=== PATIENT | male | born 1950 | race Caucasian/White ===

== ENCOUNTER 2019-03-30 17:19 | Emergency (ER) | payer MEDICARE, OTHER ==
[~2019-03-30] VITALS: Ht 175 cm; Wt 66.5 kg
--- NOTE | 2019-03-30 17:30 | ED Fever ---
History of Present Illness General Chief Complaint: Trauma-Non Activation Stated Complaint: FELL Source: patient, EMS Exam Limitations: clinical condition (MILLICENT BLANK DO) History of Present Illness Date Seen by Provider: Mar 30, 2019 Time Seen by Provider: 17:20 Initial Comments The patient is a 69-year-old male presents via EMS for evaluation of fever, general malaise, cough, and jaundice. The patient is an extremely poor historian. He states he has not seen a physician in over 20 years. He smoked 4 packs of cigarettes daily until recently when he cut back to 1 pack a day. He states that he used to drink alcohol heavily but does not anymore and is not sure if he has ever been diagnosed with cirrhosis or liver failure. He has a temperature of 37.7F upon arrival. He is noted to be tachycardic. He denies any pain at this time. He is alert, somewhat anxious, but appears to be in no distress. Timing/Duration: other (unknown) Fever Quality: greater than 100.5 F Associated Symptoms: cough (MILLICENT BLANK DO) Allergies and Home Medications Allergies Coded Allergies: No Known Drug Allergies (Unverified , 03/30/19) Patient Home Medication List Home Medication List Reviewed: Yes (MILLICENT BLANK DO) Review of Systems Review of Systems Constitutional: fever EENTM: no symptoms reported Respiratory: cough Cardiovascular: no symptoms reported Gastrointestinal: No abdominal pain; nausea Genitourinary: no symptoms reported Musculoskeletal: no symptoms reported Skin: no symptoms reported Psychiatric/Neurological: No Symptoms Reported Hematologic/Lymphatic: No Symptoms Reported Immunological/Allergic: no symptoms reported (MILLICENT BLANK DO) All Other Systems Reviewed Negative Unless Noted: Yes (MILLICENT BLANK DO) Past Pqeknur-Meribe-Eixacp Hx Past Med/Social Hx: Reviewed Nursing Past Med/Soc Hx (MILLICENT BLANK DO) Physical Exam Vital Signs - First Documented 03/30/19 03/30/19 17:19 17:33 Temp 37.7 Pulse 119 Resp 18 B/P (MAP) 113/67 (82) Pulse Ox 94 O2 Delivery Nasal Cannula O2 Flow Rate 2.00 FiO2 94 (SEBASTIÁN JIANG MD) Capillary Refill : (MILLICENT BLANK DO) Height: '" Weight: lbs. oz. kg; BMI Method: General Appearance: WD/WN, no apparent distress Eyes: Bilateral Eye PERRL, Bilateral Eye EOMI, Bilateral Eye Scleral Icterus HEENT: PERRL/EOMI, pharynx normal Neck: non-tender, full range of motion, supple Respiratory: chest non-tender, lungs clear, normal breath sounds, no respiratory distress, no accessory muscle use Cardiovascular: no edema, no JVD, tachycardia Gastrointestinal: normal bowel sounds, non tender, soft Extremities: normal range of motion, non-tender, normal inspection, no pedal edema Neurologic/Psychiatric: alert, normal mood/affect, oriented x 3 Skin: warm/dry, jaundice (MILLICENT BLANK DO) Focused Exam Lactate Level 03/30/19 17:20: Lactic Acid Level 1.80 (SEBASTIÁN JIANG MD) Lactic Acid Level Laboratory Tests Test 03/30/19 17:20 Lactic Acid Level 1.80 MMOL/L (0.50-2.00) (SEBASTIÁN JIANG MD) Progress/Results/Core Measures Suspected Sepsis SIRS Temperature: Pulse: Respiratory Rate: Laboratory Tests 03/30/19 17:20: Blood Pressure / Mean: 03/30/19 17:20: Laboratory Tests 03/30/19 17:20: (MILLICENT BLANK DO) Results/Orders Lab Results Laboratory Tests Test 03/30/19 17:20 03/30/19 18:12 Range/Units White Blood Count 13.3 H 4.3-11.0 10^3/uL Red Blood Count 3.67 L 4.35-5.85 10^6/uL Hemoglobin 11.5 L 13.3-17.7 G/DL Hematocrit 35 L 40-54 % Mean Corpuscular Volume 96 80-99 FL Mean Corpuscular Hemoglobin 31 25-34 PG Mean Corpuscular Hemoglobin Concent 33 32-36 G/DL Red Cell Distribution Width 13.7 10.0-14.5 % Platelet Count 235 130-400 10^3/uL Mean Platelet Volume 11.0 H 7.4-10.4 FL Neutrophils (%) (Auto) 76 H 42-75 % Lymphocytes (%) (Auto) 13 12-44 % Monocytes (%) (Auto) 9 0-12 % Eosinophils (%) (Auto) 1 0-10 % Basophils (%) (Auto) 1 0-10 % Neutrophils # (Auto) 10.5 H 1.8-7.8 X 10^3 Lymphocytes # (Auto) 1.8 1.0-4.0 X 10^3 Monocytes # (Auto) 1.2 H 0.0-1.0 X 10^3 Eosinophils # (Auto) 0.1 0.0-0.3 10^3/uL Basophils # (Auto) 0.1 0.0-0.1 10^3/uL Prothrombin Time 13.6 12.2-14.7 SEC INR Comment 1.0 0.8-1.4 Activated Partial Thromboplast Time 27 24-35 SEC Sodium Level 135 135-145 MMOL/L Potassium Level 4.1 3.6-5.0 MMOL/L Chloride Level 100 98-107 MMOL/L Carbon Dioxide Level 23 21-32 MMOL/L Anion Gap 12 5-14 MMOL/L Blood Urea Nitrogen 13 7-18 MG/DL Creatinine 0.85 0.60-1.30 MG/DL Estimat Glomerular Filtration Rate > 60 BUN/Creatinine Ratio 15 Glucose Level 110 H 70-105 MG/DL Lactic Acid Level 1.80 0.50-2.00 MMOL/L Calcium Level 8.6 8.5-10.1 MG/DL Corrected Calcium 8.5 8.5-10.1 MG/DL Total Bilirubin 0.2 0.1-1.0 MG/DL Aspartate Amino Transf (AST/SGOT) 20 5-34 U/L Alanine Aminotransferase (ALT/SGPT) 12 0-55 U/L Alkaline Phosphatase 46 40-136 U/L Troponin I < 0.30 <0.30 NG/ML Pro-B-Type Natriuretic Peptide 189.3 H <75.0 PG/ML Total Protein 7.0 6.4-8.2 GM/DL Albumin 4.1 3.2-4.5 GM/DL Urine Color YELLOW Urine Clarity CLEAR Urine pH 6.5 5-9 Urine Specific [place] 1.020 1.016-1.022 Urine Protein NEGATIVE NEGATIVE Urine Glucose (UA) NEGATIVE NEGATIVE Urine Ketones NEGATIVE NEGATIVE Urine Nitrite NEGATIVE NEGATIVE Urine Bilirubin NEGATIVE NEGATIVE Urine Urobilinogen 0.2 < = 1.0 MG/DL Urine Leukocyte Esterase NEGATIVE NEGATIVE Urine RBC (Auto) TRACE H NEGATIVE Urine RBC RARE /HPF Urine WBC RARE /HPF Urine Squamous Epithelial Cells RARE /HPF Urine Crystals NONE /LPF Urine Bacteria NEGATIVE /HPF Urine Casts NONE /LPF Urine Mucus NONE /LPF Urine Culture Indicated NO (SEBASTIÁN JIANG MD) Micro Results Microbiology 03/30/19 Influenza Types A,B Antigen ([facility]) - Final, Complete (SEBASTIÁN JIANG MD) My Orders Orders - SEBASTIÁN JIANG MD Rocephin 1 Gm Iv (1x Dose) (03/30/19 19:15) Methylprednisolone Sod Succ (Solu-Medrol (03/30/19 19:15) Albuterol/Ipra Inhalation Soln (Duoneb I (03/30/19 19:15) Svn Small Volume Nebulizer (03/30/19 19:06) (SEBASTIÁN JIANG MD) Vital Signs/I&O 03/30/19 03/30/19 17:19 17:33 Temp 37.7 Pulse 119 Resp 18 B/P (MAP) 113/67 (82) Pulse Ox 94 O2 Delivery Nasal Cannula Room Air O2 Flow Rate 2.00 FiO2 94 (SEBASTIÁN JIANG MD) Vital Signs/I&O Capillary Refill : (MILLICENT BLANK DO) Progress Note : Progress Note @1800 - Pt care transferred to Dr. Scott Jiang at this time. Awaiting laboratory results and response to treatment. (MILLICENT BLANK DO) Progress Note : Time: 19:07 Progress Note 1905: Patient resting comfortably on side of bed. Test results discussed with patient and family. I strongly encouraged admission to the hospital. He refused. He understands risk including . (SEBASTIÁN JIANG MD) ECG EKG : Comment @1726 - Sinus tachycardia, rate 1:15, normal axis, no acute ischemic findings noted, no STEMI, reviewed and interpreted by myself (MILLICENT BLANK DO) Departure Impression Primary Impression: Acute bronchitis Disposition: 01 HOME, SELF-CARE Condition: Stable Departure-Patient Inst. Decision time for Depature: 19:09 (SEBASTIÁN JIANG MD) Patient Instructions: Acute Bronchitis, Adult (DC) Add. Discharge Instructions: Follow-up with physician of your choice as soon as possible. They can about axis prescribed. Try to quit smoking. All discharge instructions reviewed with patient and/or family. Voiced understanding. Scripts Prednisone (Prednisone) 20 Mg Tab 20 MG PO BID, #10 TAB Take 3 tabs(60mg)daily, decrease by 1/2 tab(10mg)daily. Prov: SEBASTIÁN JIANG MD 03/30/19 Albuterol Sulfate (Proventil Hfa) 6.7 Gm Hfa.aer.ad 2 PUFF INH Q6H for SHORTNESS OF BREATH, #1 EACH Prov: SEBASTIÁN JIANG MD 03/30/19 Azithromycin (Azithromycin) 250 Mg Tablet 250 MG PO UD, #6 TAB TAKE 2 TABLETS ON DAY ONE THEN TAKE 1 TABLET DAILY FOR FOUR MORE DAYS Prov: SEBASTIÁN JIANG MD 03/30/19 MILLICENT BLANK DO Mar 30, 2019 17:30 SEBASTIÁN JIANG MD Mar 30, 2019 19:12
[2019-03-30 17:41] LABS: BASOPHILS % (AUTO) 1 % (0-10); EOSINOPHILS % (AUTO) 1 % (0-10); HEMATOCRIT 35 % (40-54); HEMOGLOBIN 11.5 G/DL (13.3-17.7); LYMPHOCYTES % (AUTO) 13 % (12-44); MEAN CORPUSCULAR HEMOGLOBIN 31 PG (25-34); MEAN CORPUSCULAR HGB CONC 33 G/DL (32-36); MEAN CORPUSCULAR VOLUME 96 FL (80-99); MONOCYTES % (AUTO) 9 % (0-12); NEUTROPHILS % (AUTO) 76 % (42-75); PLATELET COUNT 235 10^3/uL (130-400); RED CELL DISTRIBUTION WIDTH 13.7 % (10.0-14.5); WHITE BLOOD COUNT 13.3 10^3/uL (4.3-11.0)
[2019-03-30 17:42] LABS: BASOPHILS # (AUTO) 0.1 10^3/uL (0.0-0.1); EOSINOPHILS # (AUTO) 0.1 10^3/uL (0.0-0.3); LYMPHOCYTES # (AUTO) 1.8 X 10^3 (1.0-4.0); MONOCYTES # (AUTO) 1.2 X 10^3 (0.0-1.0); NEUTROPHILS # (AUTO) 10.5 X 10^3 (1.8-7.8)
[2019-03-30 17:57] LABS: PROTHROMBIN TIME PATIENT 13.6 SEC (12.2-14.7)
[2019-03-30 18:09] LABS: CHLORIDE 100 MMOL/L (98-107); POTASSIUM 4.1 MMOL/L (3.6-5.0); SODIUM 135 MMOL/L (135-145)
[2019-03-30 18:10] LABS: ALANINE AMINOTRANSFERASE 12 U/L (0-55); ALKALINE PHOSPHATASE 46 U/L (40-136); BILIRUBIN,TOTAL 0.2 MG/DL (0.1-1.0); BUN/CREATININE RATIO 15; CALCIUM 8.6 MG/DL (8.5-10.1); CARBON DIOXIDE 23 MMOL/L (21-32); CREATININE SERUM 0.85 MG/DL (0.60-1.30); GFR ESTIMATED > 60; GLUCOSE 110 MG/DL (70-105)
[2019-03-30 18:11] LABS: ALBUMIN 4.1 GM/DL (3.2-4.5)
--- NOTE | 2019-03-30 18:27 | Diagnostic Imaging Report ---
INDICATION: Fall COMPARISON: None available TECHNIQUE: Single radiograph of the chest dated 03/30/2019 FINDINGS: The cardiac silhouette and pulmonary vasculature within normal limits. The lungs are clear. No pleural effusion. No pneumothorax. No acute osseous abnormality. IMPRESSION: No acute cardiopulmonary abnormality. Dictated by: Dictated on workstation # [id number]
[2019-03-30 18:37] LABS: BACTERIA,URINE NEGATIVE /HPF; BILIRUBIN,URINE NEGATIVE (NEGATIVE); CLARITY,URINE CLEAR; COLOR,URINE YELLOW; GLUCOSE, URINE (UA) NEGATIVE (NEGATIVE); KETONES,URINE NEGATIVE (NEGATIVE); LEUKOCYTE ESTERASE ,URINE NEGATIVE (NEGATIVE); NITRITE,URINE NEGATIVE (NEGATIVE); PH,URINE 6.5 (5-9); PROTEIN,URINE NEGATIVE (NEGATIVE); RBC,URINE RARE /HPF; SQUAMOUS EPITHELIAL CELL,UR RARE /HPF; WBC,URINE RARE /HPF
[2019-03-30] MEDS ORDERED: AZIT250T12 PO (19:11)
[2019-03-30] MEDS ORDERED: ACETAMINOPHEN 500 MG TAB (TYLENOL) ONE (19:11)
[2019-03-30] MEDS ORDERED: RT-ALBUINH INH (19:11)
[2019-03-30] MEDS ORDERED: PRD20T PO (19:11)
[2019-03-30] MEDS ORDERED: RT-ALBUTEROL/IPRATROPIUM 3 ML (DUONEB) VIAL INH ONE (19:15)
[2019-03-30] MEDS ORDERED: cefTRIAXone FOR IV USE 1,000 MG in WATER (STERILE) FOR INJECTION 10 ML IV ONE (19:15)
[2019-03-30] MEDS ORDERED: methylPREDNISolone 125 MG (Solu-MEDROL) VIAL IVP ONE (19:15)
[2019-03-30 19:26] VITALS: BP 120/74
[2019-03-30] MEDS ORDERED: ACETAMINOPHEN 500 MG TAB (TYLENOL) PO ONE (19:30)
== END 2019-03-30 19:33 | disposition home or self-care (01) ==
LOC: ER FS 17:21
DX: J20.9 Acute bronchitis, unspecified (principal); F17.210 Nicotine dependence, cigarettes, uncomplicated
CPT/HCPCS: 36415; 71045; 80053; 81000; 83605; 83880; 84484; 85025; 85610; 85730; 87040; 87088; 87804; 93005